=== PATIENT | female | born 1990 | race Caucasian/White ===

== ENCOUNTER 2016-07-11 18:14 | Emergency (ER) | payer BC ==
[2016-07-11 18:23] VITALS: TEMP 98.6
--- NOTE | 2016-07-11 18:47 | EDPHY ---
H & P Stated Complaint: Hit head on mailbox at 11am. Has headache and feels disoriented. HPI/ROS: Chief complaint: Head injury History of present illness: This is a 25-year-old female who presents to the emergency department for evaluation of a head injury. Patient reports approximately 8 hours ago she slipped on ice and struck the side of her head against her mailbox. She fell to the ground but did not hit her head on the ground. She did not lose consciousness. However since then she has had a persistent headache, she is nauseated but has not vomited and just feels disoriented. She denies other associated signs or symptoms including no neck pain or pain in other parts of the body. No paresthesias. No weakness or paralysis. No bowel or bladder dysfunction. Review of systems: A 10 point review of systems was obtained and other than described above is negative - Personal History LMP (Females 10-55): 8-14 Days Ago Current Tetanus Diphtheria and Acellular Pertussis (TDAP): Yes - Medical/Surgical History Hx Asthma: No Hx Chronic Respiratory Disease: No Hx Diabetes: No Hx Cardiac Disease: No Hx Renal Disease: No Hx Cirrhosis: No Hx Alcoholism: No Hx HIV/AIDS: No Hx Splenectomy or Spleen Trauma: No Other PMH: Kidney stones. - Social History Smoking Status: Never smoked - Physical Exam Exam: General Appearance: Alert, nontoxic. Eyes: Pupils equal and round no injection. ENT: No hemotympanum, no redmond sign, no raccoon eyes Respiratory: Chest is non tender, lungs are clear to auscultation. Cardiac: regular rate and rhythm Gastrointestinal: Abdomen is soft and non tender, no masses, bowel sounds normal. Musculoskeletal: Head is normocephalic, atraumatic. Neck is supple and non tender. Spine is nontender to palpation along its entire length. Extremities have full range of motion and are non tender. Skin: No lesions consistent with trauma noted. Neurological: Alert and oriented x4. Cranial nerves 2-12 grossly intact. Strength and sensation intact and symmetrical. Constitutional: Initial Vital Signs Temperature (C) 37 C 07/11/16 18:20 Heart Rate 96 07/11/16 18:20 Respiratory Rate 16 07/11/16 18:20 Blood Pressure 134/94 H 07/11/16 18:20 O2 Sat (%) 97 07/11/16 18:20 O2 Delivery Mode Room Air Allergies/Adverse Reactions: No Known Allergies Allergy (Unverified 07/11/16 18:23) Medical Decision Making ED Course/Re-evaluation: Patient seen under the supervision of my secondary supervising physician Dr. Chip Cornejo. Patient presents to the emergency department for a head injury. On presentation patient is nontoxic. She is afebrile and vital signs are stable. By history and physical exam I do not appreciate evidence of significant trauma, she has a benign physical exam, no history of loss of consciousness, no neurologic deficits noted. I believe bony fracture or intracranial bleed is unlikely. We have discussed a CT scan, I believe it is unlikely to reveal anything but told her I cannot be 100% certain without it. She is comfortable not pursuing the CT scan. Patient is discharged home. Home care is discussed. Head injury precautions are discussed and she is given strict return precautions. She is otherwise asked to follow up with her primary care doctor for recheck. Patient voiced understanding and agreement with plan. Differential Diagnosis: Included but not limited to soft tissue injury such as contusion, minor head injury, concussion, unlikely bony fracture or intracranial bleed Departure - Departure Disposition: Home, Routine, Self-Care Clinical Impression: Concussion Condition: Good Instructions: Concussion (ED) Additional Instructions: Follow-up with a primary care doctor next week for recheck If symptoms worsen or new symptoms develop return to the emergency department for recheck Referrals: [facility] [Outside] - As per Instructions
[2016-07-11 19:02] VITALS: BP 115/73; PULSE 83; RESP 18; O2SAT 95
== END 2016-07-11 19:03 | disposition home or self-care (01) ==
DX: S06.0X0A Concussion without loss of consciousness, initial encounter (principal); W00.0XXA Fall on same level due to ice and snow, initial encounter

== ENCOUNTER 2017-03-03 14:26 | Emergency (ER) | payer BC ==
[2017-03-03 14:33] VITALS: RESP 18; TEMP 98.8
--- NOTE | 2017-03-03 14:35 | EDPHY ---
H & P Stated Complaint: Tongue feels "slow";fatigue,feels confused since friday Time Seen by Provider: 03/03/17 14:34 HPI/ROS: CHIEF COMPLAINT: Headache, difficulty with speech, "feeling off" HISTORY OF PRESENT ILLNESS: The patient presents to the ED with a protean constellation of symptoms including a 3 day history of a mild frontal headache, difficulty with speech feeling that her tongue was "thick" and subjective confusion. The patient denies prior history of the symptoms. She is also having some mild symptoms of dyspnea. The patient denies focal numbness or weakness. She was stung by a bee on and when she developed the symptoms over the weekend was concerned that she may be having a delayed allergic reaction. That prompted her to begin taking Benadryl. The patient denies prior history of the symptoms. The patient denies any history of headache or neck trauma. The patient denies any additional infectious symptoms. REVIEW OF SYSTEMS: A comprehensive 10 point review of systems is otherwise negative aside from elements mentioned in the history of present illness. Source: Patient - Personal History LMP (Females 10-55): 22-28 Days Ago Current Tetanus Diphtheria and Acellular Pertussis (TDAP): Yes - Medical/Surgical History Hx Asthma: No Hx Chronic Respiratory Disease: No Hx Diabetes: No Hx Cardiac Disease: No Hx Renal Disease: No Hx Cirrhosis: No Hx Alcoholism: No Hx HIV/AIDS: No Hx Splenectomy or Spleen Trauma: No Other PMH: Kidney stones. - Social History Smoking Status: Never smoked - Physical Exam Exam: General Appearance: Alert, no distress Eyes: Pupils equal and round no pallor or injection ENT, Mouth: Mucous membranes moist Respiratory: There are no retractions, lungs are clear to auscultation Cardiovascular: Regular rate and rhythm Gastrointestinal: Abdomen is soft and nontender, no masses, bowel sounds normal Neurological: A&O, normal motor function, normal sensory exam, normal cranial nerves Skin: Warm and dry, no rashes Musculoskeletal: Neck is supple nontender Extremities: symmetrical, full range of motion Psychiatric: Patient is oriented X 3, there is no agitation Constitutional: Initial Vital Signs Temperature (C) 37.1 C 03/03/17 14:28 Heart Rate 118 H 03/03/17 14:28 Respiratory Rate 18 03/03/17 14:28 Blood Pressure 152/100 H 03/03/17 14:28 O2 Sat (%) 98 09/11/17 14:28 O2 Delivery Mode Room Air Allergies/Adverse Reactions: No Known Allergies Allergy (Verified 03/03/17 14:28) Home Medications: Medication Instructions Recorded Control Pills 03/03/17 Medical Decision Making - Diagnostics Imaging Results: Imaging Impressions Brain MRI 03/03/17 14:52 Impression: Normal MRI of the brain without contrast. Findings discussed with Adarsh Velasquez 03/03/2017 at 16:38. ED Course/Re-evaluation: The patient presents to the ED with a variety of unexplained symptoms including headache, difficulty with speech, problems concentrating and mild dyspnea. The patient states her symptoms began a day after being stung by a bee. She had taken Benadryl but had symptoms prior to the start of that medication. The patient's neurologic examination is noted to be normal. Given her unexplained neurologic symptoms with headache she was taken for a brain MRI which demonstrates no evidence of an intracranial mass, demyelinating illness or indirect evidence of a thrombosis. The patient does have some complaints dyspnea. She is currently on control pills. The patient's D-dimer is negative which I feel adequately excludes VTE. The patient not noted to be acutely hypoxemic. She was mildly tachycardic upon arrival which improved throughout her stay. At this point time I am reassured by the patient's examination workup although I do not have a specific diagnosis to explain her symptoms. I do feel it is reasonable to have her watch her symptoms for any evolution over the next several days. I do feel the patient can follow up with our on-call neurologist for any unimproved symptoms and return to the emergency department for the development of worsening symptoms, fever, acute neurologic symptoms or other concerns. Differential Diagnosis: Differential diagnosis considered for the patient's headache and word-finding difficulties include atypical migraine, [employer] tumor, multiple sclerosis, [employer] mass. Differential diagnosis considered for the patient's dyspnea includes pulmonary embolism, anxiety reaction and anemia. - Data Points Laboratory Results: Laboratory Results 03/03/17 15:00 03/03/17 15:00 03/03/17 03/03/17 03/03/17 15:00 15:00 15:00 WBC RBC Hgb Hct MCV MCH MCHC RDW Plt Count MPV Neut % (Auto) Lymph % (Auto) [place] % (Auto) Eos % (Auto) Baso % (Auto) Nucleat RBC Rel Count Absolute Neuts (auto) Absolute Lymphs (auto) Absolute Monos (auto) Absolute Eos (auto) Absolute Basos (auto) Absolute Nucleated RBC Immature Gran % Immature Gran # D-Dimer 0.28 ug/mLFEU ug/mLFEU (0.00-0.50) Sodium 139 mEq/L mEq/L (134-144) Potassium 3.6 mEq/L mEq/L (3.5-5.2) Chloride 106 mEq/L mEq/L (97-110) Carbon Dioxide 17 mEq/l L mEq/l (22-31) Anion Gap 16 mEq/L mEq/L (8-16) BUN 13 mg/dL mg/dL (7-23) Creatinine 0.7 mg/dL mg/dL (0.6-1.0) Estimated GFR > 60 Glucose 125 mg/dL H mg/dL (70-100) Calcium 9.6 mg/dL mg/dL (8.5-10.4) Beta HCG, Qual NEGATIVE 03/03/17 15:00 WBC 9.01 10^3/uL 10^3/uL (3.80-9.50) RBC 4.98 10^6/uL 10^6/uL (4.18-5.33) Hgb 14.0 g/dL g/dL (12.6-16.3) Hct 42.5 % % (38.0-47.0) MCV 85.3 fL fL (81.5-99.8) MCH 28.1 pg pg (27.9-34.1) MCHC 32.9 g/dL g/dL (32.4-36.7) RDW 13.4 % % (11.5-15.2) Plt Count 303 10^3/uL 10^3/uL (150-400) MPV 10.2 fL fL (8.7-11.7) Neut % (Auto) 64.6 % % (39.3-74.2) Lymph % (Auto) 28.3 % % (15.0-45.0) [place] % (Auto) 5.8 % % (4.5-13.0) Eos % (Auto) 0.9 % % (0.6-7.6) Baso % (Auto) 0.3 % % (0.3-1.7) Nucleat RBC Rel Count 0.0 % % (0.0-0.2) Absolute Neuts (auto) 5.82 10^3/uL 10^3/uL (1.70-6.50) Absolute Lymphs (auto) 2.55 10^3/uL 10^3/uL (1.00-3.00) Absolute Monos (auto) 0.52 10^3/uL 10^3/uL (0.30-0.80) Absolute Eos (auto) 0.08 10^3/uL 10^3/uL (0.03-0.40) Absolute Basos (auto) 0.03 10^3/uL 10^3/uL (0.02-0.10) Absolute Nucleated RBC 0.00 10^3/uL 10^3/uL (0-0.01) Immature Gran % 0.1 % % (0.0-1.1) Immature Gran # 0.01 10^3/uL 10^3/uL (0.00-0.10) D-Dimer Sodium Potassium Chloride Carbon Dioxide Anion Gap BUN Creatinine Estimated GFR Glucose Calcium Beta HCG, Qual Departure - Departure Disposition: Home, Routine, Self-Care Clinical Impression: Headache, Dyspnea Condition: Good Instructions: Acute Headache (ED) Additional Instructions: 1. Your laboratory tests an MRI show no evidence of an acute abnormality. 2. Please follow up with a neurologist you have been referred to for any unimproved symptoms. 3. I would recommend stopping Benadryl at this point time. 4. Please return to the emergency department for markedly worsening symptoms or other concerns. Referrals: Abdiaziz Riggs, [Medical Doctor] - As per Instructions
[2017-03-03 15:12] LABS: % IMMATURE GRANULYOCYTES 0.1 % (0.0-1.1); ABSOLUTE IMMATURE GRANULOCYTES 0.01 10^3/uL (0.00-0.10); ADD DIFF? NO; ADD MORPH? NO; ADD SCAN? NO; ATYPICAL LYMPHOCYTE FLAG 10 (0-99); FRAGMENT RBC FLAG 0 (0-99); HEMATOCRIT 42.5 % (38.0-47.0); LEFT SHIFT FLG 0 (0-99); LIPEMIA HEMOLYSIS FLAG 80 (0-99); MEAN CELL HEMOGLOBIN 28.1 pg (27.9-34.1); MEAN CELL HEMOGLOBIN CONCENTR. 32.9 g/dL (32.4-36.7); MEAN CELL VOLUME 85.3 fL (81.5-99.8); MEAN PLATELET VOLUME 10.2 fL (8.7-11.7); PLATELET CLUMPS FLAG 0 (0-99); PLATELET COUNT 303 10^3/uL (150-400); RED BLOOD CELL COUNT 4.98 10^6/uL (4.18-5.33); RED CELL DISTRIBUTION WIDTH 13.4 % (11.5-15.2)
[2017-03-03 15:34] LABS: ANION GAP 16 mEq/L (8-16); CALCIUM 9.6 mg/dL (8.5-10.4); CARBON DIOXIDE 17 mEq/l (22-31); CHLORIDE 106 mEq/L (97-110); CREATININE 0.7 mg/dL (0.6-1.0); GLOMERULAR FILTRATION RATE > 60; GLUCOSE 125 mg/dL (70-100); POTASSIUM 3.6 mEq/L (3.5-5.2); SODIUM 139 mEq/L (134-144)
[2017-03-03 16:58] VITALS: BP 136/79; PULSE 98; O2SAT 94
== END 2017-03-03 16:57 | disposition home or self-care (01) ==
DX: R51 Headache (principal); R06.00 Dyspnea, unspecified

== ENCOUNTER 2018-04-01 13:20 | Emergency (ER) | payer BC ==
--- NOTE | 2018-04-01 13:35 | EDPHY ---
H & P Time Seen by Provider: 04/01/18 13:33 HPI/ROS: CHIEF COMPLAINT: Abdominal pain HISTORY OF PRESENT ILLNESS: Right lower quadrant abdominal pain since yesterday. Worse today. Associated with not being hungry, worse with movement. Associated with some dysuria but no hematuria fever or chills or back pain. She has had kidney stones before and says this feels different. No vaginal bleeding or discharge. No vomiting or diarrhea. REVIEW OF SYSTEMS: Eye: no change in vision ENT: A little bit of congestion, getting over a cold Cardiac: no chest pain or syncope Pulmonary: A little bit of nonproductive cough, getting over a cold, not short of breath Abdomen: HPI Musculoskeletal: no back pain Skin: no rash Neuro: no headache Constitutional: no fever : no urinary symptoms A comprehensive 10 point review of systems is otherwise negative aside from elements mentioned in the history of present illness. PAST MEDICAL HISTORY: Kidney stones Social history: Nonsmoker, student General Appearance: Alert and conversant, cooperative. Eyes: No scleral icterus. ENT, Mouth: Normal mucous membranes. Respiratory: Normal respiratory effort, breath sounds equal, lungs are clear to auscultation. Cardiovascular: Regular rate and rhythm. Gastrointestinal: Right lower quadrant abdominal tenderness. Neurological: Alert, face symmetric, normal motor and sensory in extremities. Skin: Warm and dry, no rashes. Musculoskeletal: No peripheral edema. Psychiatric: Not agitated. Emergency Department course/MDM: Declined pain medication, plan for ultrasound to evaluate appendix and pelvis. test and WBC count. Urinalysis. 1529: Ultrasound per Dr. Irvin shows normal pelvic and renal ultrasound, can' t see appendix. With continued right lower quadrant abdominal tenderness CT scanning discussed and consented. 1640: normal appendix per Savage, 12mm R lung base followup. no reason for RLQ pain. 1710: Results discussed, stable for discharge, warned she needs follow-up for CT finding. [address] f/u discussed with Mecca Valdivia at 1742. Smoking Status: Never smoked Constitutional: Initial Vital Signs Temperature (C) 36.7 C 04/01/18 13:21 Heart Rate 121 H 04/01/18 13:21 Respiratory Rate 18 04/01/18 13:21 Blood Pressure 144/96 H 04/01/18 13:21 O2 Sat (%) 97 04/01/18 13:21 O2 Delivery Mode Room Air Allergies/Adverse Reactions: No Known Allergies Allergy (Verified 03/03/17 14:28) Home Medications: Medication Instructions Recorded Control Pills 03/03/17 Medical Decision Making - Diagnostics Imaging Results: Imaging Impressions Abdomen Ultrasound 04/01/18 13:58 Impression: Indeterminate study for appendicitis, as a normal nor an abnormal appendix is visualized. Results called and discussed with Dr. Tapan Morrell on April 01, 2018 at 1530 hours. Abdomen/Pelvis Ultrasound 04/01/18 13:58 Impression: Unremarkable renal ultrasound with limitation of body habitus with no evidence for hydronephrosis. Results called and discussed with Dr. Tapan Morrell on April 01, 2018 at 1532 hours. Pelvic/Renal Ultrasound 04/01/18 13:58 Impression: Normal ultrasound pelvis. Results called and discussed with Dr. Tapan Morrell at 04/01/2018 15:33. Abdomen CT 04/01/18 16:08 Impression: 1. No source for right lower quadrant pain identified. 2. Small noncalcified lobulated nodule at the right lung base associated with peripherally calcified lymph nodes in the right hilum. Perhaps this represents evidence of a noncalcified granuloma or small area of mucus plugging. Recommend six-month follow-up contrast CT for further evaluation. Of course, if there are any old outside CT scans that include the lung bases, we would be happy to review them to assess for interval change. Results discussed with Dr. Tapan Morrell at 4:42 PM. General information for patients regarding this examination can be found at [email or web address]. If you have questions or comments about this report, please contact me at [phone] (hospital) or [phone] (cell). Imaging: Discussed imaging studies w/ call box wirer Radiologist Differential Diagnosis: Differential considered including but not limited to PID, UTI, renal colic, appendicitis, ovarian cyst or torsion, ectopic. - Data Points Laboratory Results: Laboratory Results 04/01/18 13:44 04/01/18 13:44 04/01/18 04/01/18 04/01/18 13:50 13:44 13:44 WBC RBC Hgb Hct MCV MCH MCHC RDW Plt Count MPV Neut % (Auto) Lymph % (Auto) [place] % (Auto) Eos % (Auto) Baso % (Auto) Nucleat RBC Rel Count Absolute Neuts (auto) Absolute Lymphs (auto) Absolute Monos (auto) Absolute Eos (auto) Absolute Basos (auto) Absolute Nucleated RBC Immature Gran % Immature Gran # Sodium 139 mEq/L mEq/L (135-145) Potassium 3.9 mEq/L mEq/L (3.3-5.0) Chloride 105 mEq/L mEq/L (97-110) Carbon Dioxide 23 mEq/l mEq/l (22-31) Anion Gap 11 mEq/L mEq/L (8-16) BUN 11 mg/dL mg/dL (7-23) Creatinine 0.7 mg/dL mg/dL (0.6-1.0) Estimated GFR > 60 Glucose 122 mg/dL H mg/dL (70-100) Calcium 10.0 mg/dL mg/dL (8.5-10.4) Beta HCG, Qual NEGATIVE Urine Color YELLOW Urine Appearance CLEAR Urine pH 6.0 (5.0-7.5) Ur Specific [place] 1.008 (1.002-1.030) Urine Protein NEGATIVE (NEGATIVE) Urine Ketones NEGATIVE (NEGATIVE) Urine Blood NEGATIVE (NEGATIVE) Urine Nitrate NEGATIVE (NEGATIVE) Urine Bilirubin NEGATIVE (NEGATIVE) Urine Urobilinogen NEGATIVE EU EU (0.2-1.0) Ur Leukocyte Esterase NEGATIVE (NEGATIVE) Urine Glucose NEGATIVE (NEGATIVE) 04/01/18 13:44 WBC 9.28 10^3/uL 10^3/uL (3.80-9.50) RBC 5.06 10^6/uL 10^6/uL (4.18-5.33) Hgb 14.3 g/dL g/dL (12.6-16.3) Hct 42.5 % % (38.0-47.0) MCV 84.0 fL fL (81.5-99.8) MCH 28.3 pg pg (27.9-34.1) MCHC 33.6 g/dL g/dL (32.4-36.7) RDW 13.2 % % (11.5-15.2) Plt Count 302 10^3/uL 10^3/uL (150-400) MPV 10.0 fL fL (8.7-11.7) Neut % (Auto) 65.4 % % (39.3-74.2) Lymph % (Auto) 27.2 % % (15.0-45.0) [place] % (Auto) 5.4 % % (4.5-13.0) Eos % (Auto) 1.3 % % (0.6-7.6) Baso % (Auto) 0.5 % % (0.3-1.7) Nucleat RBC Rel Count 0.0 % % (0.0-0.2) Absolute Neuts (auto) 6.07 10^3/uL 10^3/uL (1.70-6.50) Absolute Lymphs (auto) 2.52 10^3/uL 10^3/uL (1.00-3.00) Absolute Monos (auto) 0.50 10^3/uL 10^3/uL (0.30-0.80) Absolute Eos (auto) 0.12 10^3/uL 10^3/uL (0.03-0.40) Absolute Basos (auto) 0.05 10^3/uL 10^3/uL (0.02-0.10) Absolute Nucleated RBC 0.00 10^3/uL 10^3/uL (0-0.01) Immature Gran % 0.2 % % (0.0-1.1) Immature Gran # 0.02 10^3/uL 10^3/uL (0.00-0.10) Sodium Potassium Chloride Carbon Dioxide Anion Gap BUN Creatinine Estimated GFR Glucose Calcium Beta HCG, Qual Urine Color Urine Appearance Urine pH Ur Specific [place] Urine Protein Urine Ketones Urine Blood Urine Nitrate Urine Bilirubin Urine Urobilinogen Ur Leukocyte Esterase Urine Glucose Medications Given: Discontinued Medications Sodium Chloride (Ns) 1,000 mls @ 0 mls/hr IV EDNOW ONE; Wide Open PRN Reason: Protocol Stop: 04/01/18 13:43 Last Admin: 04/01/18 14:53 Dose: 1,000 mls Departure - Departure Disposition: Home, Routine, Self-Care Clinical Impression: Abdominal pain Qualifiers: Abdominal location: right lower quadrant Qualified Code(s): R10.31 - Right lower quadrant pain Condition: Good Instructions: Acute Abdominal Pain (ED) Additional Instructions: Please follow-up with your primary care doctor in the next 24-48 hours if not improved. You need to return to the emergency department immediately if you develop worsening or severe pain, fever, vomiting or you are not completely better in 8- 12 hours. You have a 12 mm nodule in the right lower lung, needs repeat CT scanning in 6 months for evaluation. Referrals: Mecca Valdivia MD [Primary Care Provider] - 1-2 days without fail
[2018-04-01] MEDS ORDERED: NS 1,000 ML IV ONE (13:42)
[2018-04-01 13:56] LABS: PLATELET COUNT 302 10^3/uL (150-400)
[2018-04-01] MEDS ORDERED: IOPAMIDOL (ISOVUE-300) 100 ML BTL ONE (16:10)
[2018-04-01 17:35] VITALS: BP 138/90
== END 2018-04-01 17:34 | disposition home or self-care (01) ==
DX: R10.31 Right lower quadrant pain (principal)
CPT/HCPCS: Q9967